=== PATIENT | female | born 1995 | race Caucasian/White ===

== ENCOUNTER 2016-10-04 11:09 | Emergency (ER) | payer BC ==
--- NOTE | 2016-10-04 11:33 | UC ---
General HPI - HPI Summary HPI Summary: She had 4 tongue piercings done at 1400 on 10/02 afternoon. tongue and throat started swelling about 1 hr after procedure. It has continued to progress since that time. she took 400 mgs ibuprofen with difficulty this morning. she is having difficulty speaking bc tongue swelling. no fevers. no lip swelling or tingling. she does not have pain. throat is swollen. @ piercings on the tip of her tongue and 2 underneath. She had a previous central inferior tongue. She is a student at [employer]. H/o congenital adrenal hyperplasia and takes hydrocortisone. - History of Current Complaint Stated Complaint: ORAL COMPLAINT Time Seen by Provider: 10/04/16 11:27 - Allergy/Home Medications Allergies/Adverse Reactions: Allergies Allergy/AdvReac Type Severity Reaction Status Date / Time No Known Allergies Allergy Verified 10/04/16 11:14 Home Medications: Home Medications Estradiol Valerate-Dienogest [Natazia] 1 tab PO DAILY 10/04/16 [History Confirmed 10/04/16] Flouricortisone DAILY 10/04/16 [History] Hydrocortisone [Cortef] 5 mg PO BID 10/04/16 [History Confirmed 10/04/16] Pantoprazole TAB (NF) [Protonix TAB (NF)] 40 mg PO DAILY 10/04/16 [History Confirmed 10/04/16] PMH/Surg Hx/FS Hx/Imm Hx Previously Healthy: Yes - Family History Known Family History: Positive: Hypertension Review of Systems Constitutional: Negative Skin: Negative Eyes: Negative ENT: Sore Throat Respiratory: Negative Cardiovascular: Negative Gastrointestinal: Negative Genitourinary: Negative Motor: Negative Neurovascular: Negative Musculoskeletal: Negative Neurological: Negative Psychological: Negative All Other Systems Reviewed And Are Negative: Yes Physical Exam Triage Information Reviewed: Yes Appearance: No Pain Distress, Well-Nourished - she has some difficulty speaking and opening her mouth. neck is visbly swollen. lips are nml. Vital Signs Reviewed: Yes Eye Exam: Normal ENT: Positive: Hearing grossly normal, TMs normal, Muffled/hoarse voice - tongue with swelling and 2 piercings at tip of tonngue and 2 piercings new underneath tongue. unable to view OP without tongue depressor. she had a central inferior piercing that was there prior. There is whitish exudate inferior to tongue. tongue is not increased in erythema, but nml in color. Neck: Positive: Tenderness @ - and swollen at anterior neck. breathing comfortably. Respiratory Exam: Normal Respiratory: Positive: Lungs clear, Normal breath sounds, No respiratory distress, No accessory muscle use Cardiovascular Exam: Normal Cardiovascular: Positive: RRR, No Murmur, Pulses Normal, Brisk Capillary Refill Abdomen Description: Positive: Nontender, Soft Musculoskeletal Exam: Normal Neurological Exam: Normal Psychological Exam: Normal Skin Exam: Normal Course/Dx - Course Course Of Treatment: IV placed. 911 called to transfer to ER bc airway compromise. she is agreeable. she communicates mostly by writing. - Differential Dx - Multi-Symptom Differential Diagnoses: Other - abscess, infection, allergic reaction. Provider Diagnoses: Tongue swelling, throat swelling. - Physician Notifications Discussed Patient Care With: Mel Bynum NP at [facility]– [place]. She accepts pt. Time Discussed With Above Provider: 11:45 Discharge - Discharge Plan Condition: Guarded Disposition: TRANS HIGHER LVL OF CARE FAC
[2016-10-04 11:51] VITALS: BP 140/80
== END 2016-10-04 11:45 | disposition short-term general hospital (02) ==
LOC: UCCORT 11:09
DX: R22.0 Localized swelling, mass and lump, head (principal); R22.1 Localized swelling, mass and lump, neck
CPT/HCPCS: 99203; G0463